=== PATIENT | female | born 1990 | race Hispanic/Latino ===

== ENCOUNTER 2021-07-05 12:54 | Emergency (ER) | payer BC ==
[~2021-07-05] VITALS: Ht 167.6 cm; Wt 90.0 kg
[2021-07-05] MEDS ORDERED: PRE-NATAL PO (14:37)
[2021-07-05 14:38] LABS: URINE BILIRUBIN - DIPSTICK NEGATIVE (NEGATIVE); URINE BLOOD DIPSTICK NEGATIVE (NEGATIVE); URINE COLOR YELLOW; URINE GLUCOSE - DIPSTICK NEGATIVE (NEGATIVE); URINE KETONE NEGATIVE (NEGATIVE); URINE LEUK ESTERASE NEGATIVE (NEGATIVE); URINE PH 6.5 (4.5-8.0); URINE PROTEIN - DIPSTICK NEGATIVE (NEG-TRACE); URINE UROBILINOGEN - DIPSTICK 0.2 E.U./dL (0.2)
[2021-07-05 14:42] LABS: URINE NITRITE - DIPSTICK NEGATIVE (Negative)
[2021-07-05] MEDS ORDERED: SB CLOTRIMAZ1 % VA (15:57)
[2021-07-05 16:00] VITALS: BP 119/75
== END 2021-07-05 16:00 | disposition home or self-care (01) | DRG 833 ==
LOC: ED 12:54
PROVIDERS: Family Medicine
DX: O98.811 Other maternal infectious and parasitic diseases complicating pregnancy, first trimester (principal); B37.3 Candidiasis of vulva and vagina; Z3A.12 12 weeks gestation of pregnancy